=== PATIENT | female | born 1960 | race African-American/Black ===

== ENCOUNTER 2020-07-26 20:17 | Inpatient (IN) | payer OTHER ==
[2020-07-26 20:33] VITALS: BMI 27.0
[2020-07-26 22:04] LABS: BASO % 0.7 % (0-2.0); EOS % 1.1 % (0-4.5); HEMATOCRIT 37.8 % (32.4-45.2); HEMOGLOBIN 13.1 GM/dL (10.7-15.3); LYMPH % 27.1 % (8-40); MCH 31.2 pg (25.7-33.7); MCHC 34.7 g/dl (32.0-36.0); MEAN CELL VOLUME 89.8 fl (80-96); MEAN PLT VOLUME 9.2 fl (7.5-11.1); MONO % 9.2 % (3.8-10.2); NEUT % 61.9 % (42.8-82.8); PLATELET COUNT 209 K/MM3 (134-434); RBC 4.21 M/mm3 (3.60-5.2); RDW 13.5 % (11.6-15.6); WHITE BLOOD COUNT 6.2 K/mm3 (4.0-10.0)
[2020-07-26 22:14] LABS: MAGNESIUM 2.3 mg/dL (1.8-2.4)
[2020-07-26 22:18] LABS: PHOSPHOROUS 3.1 mg/dL (2.5-4.9)
[2020-07-26 23:19] LABS: CHLORIDE 108 mmol/L (98-107); SODIUM 145 mmol/L (136-145)
[2020-07-26 23:21] LABS: ALBUMIN 4.2 g/dl (3.4-5.0); CALCIUM 9.7 mg/dL (8.5-10.1); CO2 29 mmol/L (21-32)
[2020-07-26 23:24] LABS: CREATININE 1.4 mg/dL (0.55-1.3); SGOT/AST 109 U/L (15-37); SGPT/ALT 42 U/L (13-61)
[2020-07-26 23:26] LABS: BILIRUBIN,TOTAL 0.6 mg/dL (0.2-1); TOT PROT 7.8 g/dl (6.4-8.2)
[2020-07-26 23:27] LABS: ALK PHOS 139 U/L (45-117)
[2020-07-26 23:51] LABS: ANION GAP 8 MMOL/L (8-16); GLUCOSE,RANDOM 153 mg/dL (74-106)
[2020-07-26 23:57] LABS: POTASSIUM 2.9 mmol/L (3.5-5.1)
[2020-07-27 00:34] LABS: BLOOD UREA NITROGEN 22.9 mg/dL (7-18)
[2020-07-27] MEDS ORDERED: POTASSIUM CHLORIDE TABS 20 MEQ TABLET.ER (FP) PO ONE ×3 (00:38→12:56)
[2020-07-27] MEDS: AMANTADINE HCL 100 MG TABLET PO SCH ×4 (01:12→21:21)
[2020-07-27] MEDS ORDERED: MAGNESIUM SULF 50% (8.12 MEQ/2 ML-1 GM VIAL) IVPB ONE (01:29)
[2020-07-27 01:30] LABS: PH,URINE 7.5 (5.0-8.0); URINE APPEARANCE CLEAR; URINE BILIRUBIN NEGATIVE (NEGATIVE); URINE COLOR YELLOW; URINE GLUCOSE (UA) NEGATIVE (NEGATIVE); URINE KETONE NEGATIVE (NEGATIVE); URINE LEUK ESTERASE NEGATIVE (NEGATIVE); URINE NITRITE NEGATIVE (NEGATIVE); URINE PROTEIN NEGATIVE (NEGATIVE); URINE UROBILINOGEN 0.2 mg/dL (0.2-1.0)
[2020-07-27] MEDS ORDERED: MAGNESIUM 1GM/D5W - 1 GM/100 ML IVPB IVPB ONE (01:34)
[2020-07-27] MEDS ORDERED: PATIENT'S OWN MEDICATION (NON-FORMULARY) (Losartan/Hydrochlorothiazide [Losartan-Hctz 100- PO SCH (10:00)
[2020-07-27] MEDS ORDERED: LOSARTAN POTASSIUM 50 MG TABLET ONE (11:17)
[2020-07-27] MEDS ORDERED: NIFEdipine E.R. 30 MG TABLET ONE (11:17)
[2020-07-27] MEDS ORDERED: HYDROCHLOROTHIAZIDE 25 MG TABLET (FP) ONE (11:17)
[2020-07-27] MEDS: HYDROCHLOROTHIAZIDE 12.5 MG CAPSULE (FP) PO SCH (11:35)
[2020-07-27] MEDS: NIFEdipine E.R 60 MG TABLET PO SCH (11:35)
[2020-07-27] MEDS: LOSARTAN POTASSIUM 50 MG TABLET PO SCH (11:35)
[2020-07-27] MEDS: SODIUM CHLORIDE 1,000 ML IV SCH (11:35)
[2020-07-27] MEDS: POTASSIUM CHLORIDE TABS 20 MEQ TABLET.ER (FP) PO SCH (13:16)
[2020-07-27] MEDS: INSULIN SLIDING SCALE (NOVOLOG) 1 VIAL SQ SCH ×2 (13:17→18:00)
[2020-07-27] MEDS ORDERED: CARBIDOPA/LEVODOPA 10/100 TABLET (FP) PO SCH (14:00)
[2020-07-27] MEDS: CARBIDOPA/LEVODOPA 25/250 TABLET (FP) PO SCH ×2 (18:00→21:22)
[2020-07-27] MEDS ORDERED: PT OWN MED DRAWER 7, Y5N ONE (21:12)
[2020-07-27] MEDS: ATORVASTATIN CA 20 MG TABLET (FP) PO SCH (21:22)
[2020-07-27] MEDS ORDERED: POTASSIUM CHLORIDE TABS 10 MEQ TABLET.ER (FP) PO SCH (22:00)
[2020-07-28] MEDS: sitaGLIPtin PHOSPHATE 50 MG TABLET PO SCH (06:09)
[2020-07-28] MEDS: CARBIDOPA/LEVODOPA 25/250 TABLET (FP) PO SCH ×3 (06:09→21:39)
[2020-07-28] MEDS: INSULIN SLIDING SCALE (NOVOLOG) 1 VIAL SQ SCH ×3 (06:09→17:16)
[2020-07-28] MEDS: AMANTADINE HCL 100 MG TABLET PO SCH ×3 (06:09→21:40)
[2020-07-28] MEDS: POTASSIUM CHLORIDE TABS 20 MEQ TABLET.ER (FP) PO SCH (09:46)
[2020-07-28] MEDS: HYDROCHLOROTHIAZIDE 12.5 MG CAPSULE (FP) PO SCH (09:46)
[2020-07-28] MEDS: NIFEdipine E.R 60 MG TABLET PO SCH (09:46)
[2020-07-28] MEDS: LOSARTAN POTASSIUM 50 MG TABLET PO SCH (09:47)
[2020-07-28] MEDS ORDERED: INSULIN (NOVOLOG) ASPART 100 UNITS/ML 10ML VIAL ONE (12:00)
[2020-07-28] MEDS: SODIUM CHLORIDE 1,000 ML IV SCH ×2 (12:03→15:04)
[2020-07-28] MEDS ORDERED: PT OWN MED DRAWER 7, Y5N ONE ×2 (15:02→21:10)
[2020-07-28] MEDS: ATORVASTATIN CA 20 MG TABLET (FP) PO SCH (21:39)
[2020-07-29] MEDS: INSULIN SLIDING SCALE (NOVOLOG) 1 VIAL SQ SCH ×3 (06:00→16:36)
[2020-07-29] MEDS: CARBIDOPA/LEVODOPA 25/250 TABLET (FP) PO SCH ×3 (06:00→22:06)
[2020-07-29] MEDS: AMANTADINE HCL 100 MG TABLET PO SCH ×3 (06:00→22:07)
[2020-07-29] MEDS: SODIUM CHLORIDE 1,000 ML IV SCH (06:02)
[2020-07-29] MEDS: sitaGLIPtin PHOSPHATE 50 MG TABLET PO SCH (06:02)
[2020-07-29 09:55] LABS: POTASSIUM 3.8 mmol/L (3.5-5.1)
[2020-07-29] MEDS: LOSARTAN POTASSIUM 50 MG TABLET PO SCH (09:59)
[2020-07-29] MEDS: POTASSIUM CHLORIDE TABS 20 MEQ TABLET.ER (FP) PO SCH (09:59)
[2020-07-29] MEDS: HYDROCHLOROTHIAZIDE 12.5 MG CAPSULE (FP) PO SCH (10:00)
[2020-07-29] MEDS: NIFEdipine E.R 60 MG TABLET PO SCH (10:00)
[2020-07-29 10:35] LABS: CALCIUM 9.1 mg/dL (8.5-10.1)
[2020-07-29 10:37] LABS: CREATININE 0.9 mg/dL (0.55-1.3)
[2020-07-29 10:38] LABS: BILIRUBIN,TOTAL 0.5 mg/dL (0.2-1); TOT PROT 6.2 g/dl (6.4-8.2)
[2020-07-29] MEDS ORDERED: PT OWN MED DRAWER 7, Y5N ONE ×2 (14:19→21:10)
[2020-07-29] MEDS: ATORVASTATIN CA 20 MG TABLET (FP) PO SCH (22:06)
[2020-07-30] MEDS: sitaGLIPtin PHOSPHATE 50 MG TABLET PO SCH (06:48)
[2020-07-30] MEDS: CARBIDOPA/LEVODOPA 25/250 TABLET (FP) PO SCH ×3 (06:48→21:20)
[2020-07-30] MEDS: AMANTADINE HCL 100 MG TABLET PO SCH ×3 (06:48→21:19)
[2020-07-30] MEDS: INSULIN SLIDING SCALE (NOVOLOG) 1 VIAL SQ SCH ×3 (06:49→16:43)
[2020-07-30] MEDS: SODIUM CHLORIDE 1,000 ML IV SCH (09:23)
[2020-07-30] MEDS: POTASSIUM CHLORIDE TABS 20 MEQ TABLET.ER (FP) PO SCH (09:23)
[2020-07-30] MEDS: HYDROCHLOROTHIAZIDE 12.5 MG CAPSULE (FP) PO SCH (09:24)
[2020-07-30] MEDS: LOSARTAN POTASSIUM 50 MG TABLET PO SCH (09:24)
[2020-07-30] MEDS: NIFEdipine E.R 60 MG TABLET PO SCH (09:24)
[2020-07-30] MEDS ORDERED: PT OWN MED DRAWER 7, Y5N ONE ×2 (14:49→20:44)
[2020-07-30] MEDS: ATORVASTATIN CA 20 MG TABLET (FP) PO SCH (21:19)
[2020-07-31 05:13] VITALS: BP 146/88; PULSE 82; TEMP 99
[2020-07-31] MEDS: AMANTADINE HCL 100 MG TABLET PO SCH (06:43)
[2020-07-31] MEDS: CARBIDOPA/LEVODOPA 25/250 TABLET (FP) PO SCH (06:43)
[2020-07-31] MEDS: INSULIN SLIDING SCALE (NOVOLOG) 1 VIAL SQ SCH (06:43)
[2020-07-31] MEDS: sitaGLIPtin PHOSPHATE 50 MG TABLET PO SCH (06:43)
[2020-07-31] MEDS: NIFEdipine E.R 60 MG TABLET PO SCH (09:18)
[2020-07-31] MEDS: POTASSIUM CHLORIDE TABS 20 MEQ TABLET.ER (FP) PO SCH (09:18)
[2020-07-31] MEDS: HYDROCHLOROTHIAZIDE 12.5 MG CAPSULE (FP) PO SCH (09:19)
[2020-07-31] MEDS: LOSARTAN POTASSIUM 50 MG TABLET PO SCH (09:19)
== END 2020-07-31 12:24 | DRG 57 ==
LOC: JER 20:17 → JERBED 23:18 → J6S 07-27 14:33
PROVIDERS: ADMIT Internal Medicine; ATTEND Internal Medicine
DX: G20 Parkinson's disease (principal); E78.00 Pure hypercholesterolemia, unspecified; I10 Essential (primary) hypertension; E11.9 Type 2 diabetes mellitus without complications; E87.6 Hypokalemia; K46.9 Unspecified abdominal hernia without obstruction or gangrene; R01.1 Cardiac murmur, unspecified; M51.36 Other intervertebral disc degeneration, lumbar region; M48.061 Spinal stenosis, lumbar region without neurogenic claudication
CPT/HCPCS: 36415; 70450-TC; 71045-TC-FY; 72131-TC; 80053; 80061; 81003; 82550; 82553; 82962; 83036; 83735; 84100; 84484; 85025; 85730; 87086; 93005; 93010; 97116-GP; 97161-GP; 99285-25; C9803; U0003

== ENCOUNTER 2021-12-08 15:09 | Inpatient (IN) | payer OTHER ==
[2021-12-08 15:26] VITALS: BMI 25.4
[2021-12-08 17:40] LABS: BASO % 0.6 % (0-2.0); EOS % 0.5 % (0-4.5); HEMATOCRIT 36.7 % (32.4-45.2); HEMOGLOBIN 12.4 GM/dL (10.7-15.3); LYMPH % 6.9 % (8-40); MCH 29.6 pg (25.7-33.7); MCHC 33.9 g/dl (32.0-36.0); MEAN CELL VOLUME 87.4 fl (80-96); MEAN PLT VOLUME 8.6 fl (7.5-11.1); MONO % 3.9 % (3.8-10.2); NEUT % 88.1 % (42.8-82.8); PLATELET COUNT 237 10^3/uL (134-434); RBC 4.19 M/mm3 (3.60-5.2); RDW 13.2 % (11.6-15.6); WHITE BLOOD COUNT 7.8 K/mm3 (4.0-10.0)
[2021-12-08 17:46] LABS: INR 1.09 (0.83-1.09); PROTHROMBIN TIME (PATIENT) 12.6 SEC (9.7-13.0)
[2021-12-08 17:49] LABS: ACTIVATED PTT 30.2 SECONDS (25.2-36.5)
[2021-12-08 17:55] LABS: CALCIUM 9.8 mg/dL (8.5-10.1)
[2021-12-08 17:56] LABS: BLOOD UREA NITROGEN 30.5 mg/dL (7-18)
[2021-12-08 17:59] LABS: CREATININE 1.3 mg/dL (0.55-1.3)
[2021-12-08 18:01] LABS: BILIRUBIN,TOTAL 0.7 mg/dL (0.2-1)
[2021-12-08] MEDS ORDERED: PIPERACILLIN/TAZOB 3.375 GM 3.375 GM in DEXTROSE 5%-WATER - 50 ML IVPB ONE (18:49)
[2021-12-08] MEDS ORDERED: VANCOMYCIN 1 GM in D5W (PRE-DOCKED) 1,000 MG/250 ML IVPB ONE (18:50)
[2021-12-08] MEDS ORDERED: VANCOMYCIN 1 GRAM (PRE-DOCKED) 1,000 MG/250 ML BAG IVPB ONE (19:01)
[2021-12-08 19:14] LABS: EPI CELLS 19 /uL (0-25.1); HYALINE CASTS 1 /uL (0-3.1); URINE APPEARANCE CLEAR; URINE BACTERIA 136 /uL (0-1359); URINE BILIRUBIN NEGATIVE (NEGATIVE); URINE COLOR YELLOW; URINE GLUCOSE (UA) TRACE (NEGATIVE); URINE KETONE TRACE (NEGATIVE); URINE LEUK ESTERASE NEGATIVE (NEGATIVE); URINE NITRITE NEGATIVE (NEGATIVE); URINE PROTEIN 1+ (NEGATIVE); URINE RBC 87 /uL (0-23.9); URINE WBC 26 /uL (0-25.8)
[2021-12-08] MEDS ORDERED: PIPERACILLIN/TAZOB 3.375 GM 3.375 GM/50 ML BAG IVPB ONE (20:03)
[2021-12-08] MEDS ORDERED: POLYETHYLENE GLYCOL (HEALTHYLAX) 3350 17 GM PACKET PO PRN (23:54)
[2021-12-09] MEDS ORDERED: PIPERACILLIN/TAZOB 3.375 GM 3.375 GM in DEXTROSE 5%-WATER - 50 ML IVPB SCH (02:00)
[2021-12-09] MEDS: PIPERACILLIN/TAZOB 3.375 GM 3.375 GM in DEXTROSE 5%-WATER - 50 ML IVPB SCH ×3 (02:41→17:32)
[2021-12-09] MEDS ORDERED: PIPERACILLIN/TAZOB 3.375 GM 3.375 GM/50 ML BAG IVPB ONE (02:42)
[2021-12-09] MEDS: CARBIDOPA/LEVODOPA 25/250 TABLET (FP) PO SCH ×4 (03:20→21:30)
[2021-12-09] MEDS: AMANTADINE HCL 100 MG TABLET PO SCH ×4 (03:29→21:30)
[2021-12-09] MEDS: INSULIN SLIDING SCALE (NOVOLOG) 1 VIAL SQ SCH ×4 (06:49→21:30)
[2021-12-09] MEDS: sitaGLIPtin PHOSPHATE 50 MG TABLET PO SCH (06:57)
[2021-12-09 07:08] LABS: BASO % 0.8 % (0-2.0); EOS % 1.3 % (0-4.5); HEMATOCRIT 35.7 % (32.4-45.2); HEMOGLOBIN 12.3 GM/dL (10.7-15.3); MCH 29.7 pg (25.7-33.7); MCHC 34.4 g/dl (32.0-36.0); MEAN CELL VOLUME 86.2 fl (80-96); MEAN PLT VOLUME 8.7 fl (7.5-11.1); MONO % 8.9 % (3.8-10.2); PLATELET COUNT 256 10^3/uL (134-434); RBC 4.14 M/mm3 (3.60-5.2); RDW 13.3 % (11.6-15.6); WHITE BLOOD COUNT 7.2 K/mm3 (4.0-10.0)
[2021-12-09 07:35] LABS: BLOOD UREA NITROGEN 32.6 mg/dL (7-18)
[2021-12-09 07:36] LABS: CALCIUM 9.6 mg/dL (8.5-10.1); MAGNESIUM 2.6 mg/dL (1.8-2.4)
[2021-12-09 07:39] LABS: CREATININE 1.3 mg/dL (0.55-1.3)
[2021-12-09] MEDS ORDERED: PIPERACILLIN/TAZOBACTAM 3.375 GM VIAL IVPB ONE ×2 (09:53→17:27)
[2021-12-09] MEDS ORDERED: DEXTROSE 5%-WATER - 50 ML IVPB ONE ×2 (09:54→17:27)
[2021-12-09] MEDS: LOSARTAN POTASSIUM 50 MG TABLET PO SCH (09:56)
[2021-12-09] MEDS: amLODIPine BESYLATE 2.5 MG TABLET (FP) PO SCH (09:56)
[2021-12-09] MEDS: ENOXAPARIN NA (PORCINE) 40 MG/0.4 ML DISP.SYRIN SQ SCH ×2 (09:57→10:04)
[2021-12-09] MEDS ORDERED: PATIENT'S OWN MEDICATION (NON-FORMULARY) (Losartan/Hydrochlorothiazide [Losartan-Hctz 100- PO SCH (10:00)
[2021-12-09] MEDS ORDERED: HYDROCHLOROTHIAZIDE 12.5 MG CAPSULE (FP) PO SCH (10:00)
[2021-12-09] MEDS ORDERED: VANCOMYCIN 1 GM in D5W (PRE-DOCKED) 1,000 MG/250 ML IVPB SCH (18:00)
[2021-12-09] MEDS ORDERED: VANCOMYCIN 1 GRAM (PRE-DOCKED) 1,000 MG/250 ML BAG IVPB SCH (18:00)
[2021-12-09] MEDS: ATORVASTATIN CA 20 MG TABLET (FP) PO SCH (21:30)
[2021-12-09] MEDS: ACETAMINOPHEN 325 MG TABLET (FP) PO PRN (21:31)
[2021-12-10] MEDS ORDERED: PIPERACILLIN/TAZOBACTAM 3.375 GM VIAL IVPB ONE ×3 (03:31→16:44)
[2021-12-10] MEDS: PIPERACILLIN/TAZOB 3.375 GM 3.375 GM in DEXTROSE 5%-WATER - 50 ML IVPB SCH ×3 (03:35→17:38)
[2021-12-10] MEDS: AMANTADINE HCL 100 MG TABLET PO SCH ×3 (05:49→21:36)
[2021-12-10] MEDS: CARBIDOPA/LEVODOPA 25/250 TABLET (FP) PO SCH ×3 (05:49→21:35)
[2021-12-10] MEDS: ACETAMINOPHEN 325 MG TABLET (FP) PO PRN (05:50)
[2021-12-10] MEDS: sitaGLIPtin PHOSPHATE 50 MG TABLET PO SCH (05:59)
[2021-12-10] MEDS: INSULIN SLIDING SCALE (NOVOLOG) 1 VIAL SQ SCH ×4 (05:59→21:36)
[2021-12-10 08:08] LABS: CALCIUM 9.1 mg/dL (8.5-10.1)
[2021-12-10 08:09] LABS: BLOOD UREA NITROGEN 29.2 mg/dL (7-18)
[2021-12-10 08:12] LABS: CREATININE 1.1 mg/dL (0.55-1.3)
[2021-12-10 08:14] LABS: BASO % 0.9 % (0-2.0); EOS % 2.5 % (0-4.5); HEMATOCRIT 32.4 % (32.4-45.2); MCH 29.6 pg (25.7-33.7); MCHC 33.9 g/dl (32.0-36.0); MEAN CELL VOLUME 87.3 fl (80-96); MEAN PLT VOLUME 8.2 fl (7.5-11.1); MONO % 8.6 % (3.8-10.2); PLATELET COUNT 217 10^3/uL (134-434); RBC 3.71 M/mm3 (3.60-5.2); RDW 13.6 % (11.6-15.6); WHITE BLOOD COUNT 4.2 K/mm3 (4.0-10.0)
[2021-12-10] MEDS ORDERED: POTASSIUM CHLORIDE ORAL LIQUID 20 MEQ/15 ML PO ONE (08:45)
[2021-12-10] MEDS ORDERED: DEXTROSE 5%-WATER - 50 ML IVPB ONE ×2 (09:28→16:44)
[2021-12-10] MEDS ORDERED: REGADENOSON 0.4 MG/5 ML PRE-FILLED SYRINGE IVPUSH ONE ×2 (09:30→11:09)
[2021-12-10] MEDS: LOSARTAN POTASSIUM 50 MG TABLET PO SCH (12:21)
[2021-12-10] MEDS: amLODIPine BESYLATE 2.5 MG TABLET (FP) PO SCH (12:21)
[2021-12-10] MEDS: ENOXAPARIN NA (PORCINE) 40 MG/0.4 ML DISP.SYRIN SQ SCH (12:22)
[2021-12-10] MEDS: ATORVASTATIN CA 20 MG TABLET (FP) PO SCH (21:35)
[2021-12-11] MEDS ORDERED: PIPERACILLIN/TAZOBACTAM 3.375 GM VIAL IVPB ONE ×3 (00:34→17:04)
[2021-12-11] MEDS: ACETAMINOPHEN 325 MG TABLET (FP) PO PRN ×2 (00:42→06:36)
[2021-12-11] MEDS: PIPERACILLIN/TAZOB 3.375 GM 3.375 GM in DEXTROSE 5%-WATER - 50 ML IVPB SCH ×3 (01:05→17:12)
[2021-12-11] MEDS: INSULIN SLIDING SCALE (NOVOLOG) 1 VIAL SQ SCH ×4 (06:35→21:34)
[2021-12-11] MEDS: CARBIDOPA/LEVODOPA 25/250 TABLET (FP) PO SCH ×3 (06:37→21:37)
[2021-12-11] MEDS: sitaGLIPtin PHOSPHATE 50 MG TABLET PO SCH (06:37)
[2021-12-11] MEDS: AMANTADINE HCL 100 MG TABLET PO SCH ×3 (06:37→21:37)
[2021-12-11 07:43] LABS: HEMATOCRIT 33.6 % (32.4-45.2); HEMOGLOBIN 11.4 GM/dL (10.7-15.3); LYMPH % 24.4 % (8-40); MCH 29.8 pg (25.7-33.7); MCHC 33.9 g/dl (32.0-36.0); MEAN CELL VOLUME 87.9 fl (80-96); MEAN PLT VOLUME 8.1 fl (7.5-11.1); MONO % 7.9 % (3.8-10.2); NEUT % 63.7 % (42.8-82.8); PLATELET COUNT 216 10^3/uL (134-434); RBC 3.82 M/mm3 (3.60-5.2); RDW 13.5 % (11.6-15.6); WHITE BLOOD COUNT 3.9 K/mm3 (4.0-10.0)
[2021-12-11] MEDS ORDERED: DEXTROSE 5%-WATER - 50 ML IVPB ONE ×2 (09:26→17:04)
[2021-12-11] MEDS: ENOXAPARIN NA (PORCINE) 40 MG/0.4 ML DISP.SYRIN SQ SCH (09:39)
[2021-12-11] MEDS: LOSARTAN POTASSIUM 50 MG TABLET PO SCH (09:39)
[2021-12-11] MEDS: amLODIPine BESYLATE 2.5 MG TABLET (FP) PO SCH (09:39)
[2021-12-11] MEDS ORDERED: POLYETHYLENE GLYCOL (HEALTHYLAX) 3350 17 GM PACKET PO PRN (11:59)
[2021-12-11] MEDS: ATORVASTATIN CA 20 MG TABLET (FP) PO SCH (21:37)
[2021-12-12] MEDS ORDERED: PIPERACILLIN/TAZOBACTAM 3.375 GM VIAL IVPB ONE ×3 (01:55→17:31)
[2021-12-12] MEDS ORDERED: DEXTROSE 5%-WATER - 50 ML IVPB ONE ×3 (01:55→17:31)
[2021-12-12] MEDS: PIPERACILLIN/TAZOB 3.375 GM 3.375 GM in DEXTROSE 5%-WATER - 50 ML IVPB SCH ×3 (01:59→17:33)
[2021-12-12] MEDS: ACETAMINOPHEN 325 MG TABLET (FP) PO PRN (02:13)
[2021-12-12] MEDS: CARBIDOPA/LEVODOPA 25/250 TABLET (FP) PO SCH ×3 (06:16→21:43)
[2021-12-12] MEDS: AMANTADINE HCL 100 MG TABLET PO SCH ×3 (06:16→21:44)
[2021-12-12] MEDS: sitaGLIPtin PHOSPHATE 50 MG TABLET PO SCH (06:16)
[2021-12-12] MEDS: INSULIN SLIDING SCALE (NOVOLOG) 1 VIAL SQ SCH ×4 (06:57→21:50)
[2021-12-12] MEDS: LOSARTAN POTASSIUM 50 MG TABLET PO SCH (10:31)
[2021-12-12] MEDS: ENOXAPARIN NA (PORCINE) 40 MG/0.4 ML DISP.SYRIN SQ SCH (10:31)
[2021-12-12] MEDS: amLODIPine BESYLATE 2.5 MG TABLET (FP) PO SCH (10:31)
[2021-12-12] MEDS: ATORVASTATIN CA 20 MG TABLET (FP) PO SCH (21:43)
[2021-12-13] MEDS ORDERED: PIPERACILLIN/TAZOBACTAM 3.375 GM VIAL IVPB ONE ×3 (00:56→17:01)
[2021-12-13] MEDS: PIPERACILLIN/TAZOB 3.375 GM 3.375 GM in DEXTROSE 5%-WATER - 50 ML IVPB SCH ×3 (01:09→17:03)
[2021-12-13] MEDS: AMANTADINE HCL 100 MG TABLET PO SCH ×3 (06:20→21:41)
[2021-12-13] MEDS: sitaGLIPtin PHOSPHATE 50 MG TABLET PO SCH (06:20)
[2021-12-13] MEDS: CARBIDOPA/LEVODOPA 25/250 TABLET (FP) PO SCH ×3 (06:20→21:41)
[2021-12-13] MEDS: INSULIN SLIDING SCALE (NOVOLOG) 1 VIAL SQ SCH ×4 (06:27→21:49)
[2021-12-13] MEDS ORDERED: DEXTROSE 5%-WATER - 50 ML IVPB ONE (09:32)
[2021-12-13] MEDS: LOSARTAN POTASSIUM 50 MG TABLET PO SCH (09:40)
[2021-12-13] MEDS: amLODIPine BESYLATE 2.5 MG TABLET (FP) PO SCH (09:40)
[2021-12-13] MEDS: ACETAMINOPHEN 325 MG TABLET (FP) PO PRN (09:40)
[2021-12-13] MEDS: ENOXAPARIN NA (PORCINE) 40 MG/0.4 ML DISP.SYRIN SQ SCH (09:48)
[2021-12-13] MEDS: ATORVASTATIN CA 20 MG TABLET (FP) PO SCH (21:41)
[2021-12-14] MEDS ORDERED: PIPERACILLIN/TAZOBACTAM 3.375 GM VIAL IVPB ONE ×2 (01:08→09:24)
[2021-12-14] MEDS ORDERED: DEXTROSE 5%-WATER - 50 ML IVPB ONE ×2 (01:08→09:24)
[2021-12-14] MEDS: PIPERACILLIN/TAZOB 3.375 GM 3.375 GM in DEXTROSE 5%-WATER - 50 ML IVPB SCH (01:17)
[2021-12-14] MEDS: AMANTADINE HCL 100 MG TABLET PO SCH ×2 (06:05→13:32)
[2021-12-14] MEDS: CARBIDOPA/LEVODOPA 25/250 TABLET (FP) PO SCH ×2 (06:05→13:33)
[2021-12-14] MEDS: sitaGLIPtin PHOSPHATE 50 MG TABLET PO SCH (06:06)
[2021-12-14] MEDS: INSULIN SLIDING SCALE (NOVOLOG) 1 VIAL SQ SCH ×3 (06:13→17:19)
[2021-12-14] MEDS: amLODIPine BESYLATE 2.5 MG TABLET (FP) PO SCH (09:28)
[2021-12-14] MEDS: LOSARTAN POTASSIUM 50 MG TABLET PO SCH (09:28)
[2021-12-14] MEDS: ACETAMINOPHEN 325 MG TABLET (FP) PO PRN (09:28)
[2021-12-14] MEDS: ENOXAPARIN NA (PORCINE) 40 MG/0.4 ML DISP.SYRIN SQ SCH (09:32)
[2021-12-14] MEDS ORDERED: POTASSIUM CHLORIDE TABS 20 MEQ TABLET.ER (FP) PO ONE (11:52)
[2021-12-14] MEDS ORDERED: amLODIPine BESYLATE 2.5 MG TABLET (FP) PO ONE (14:22)
[2021-12-14 18:31] VITALS: BP 136/75; PULSE 78; TEMP 98.1
[2021-12-15] MEDS ORDERED: amLODIPine BESYLATE 2.5 MG TABLET (FP) PO SCH (10:00)
== END 2021-12-14 18:35 | disposition home health service (06) | DRG 603 ==
LOC: JER 15:09 → JERBED 18:58 → J4W 12-09 04:29 → J6S 12-11 12:11
PROVIDERS: ADMIT Hospitalist; ATTEND Internal Medicine
DX: L03.115 Cellulitis of right lower limb (principal); L97.518 Non-pressure chronic ulcer of other part of right foot with other specified severity; I10 Essential (primary) hypertension; E78.5 Hyperlipidemia, unspecified; G20 Parkinson's disease; E11.621 Type 2 diabetes mellitus with foot ulcer; N93.9 Abnormal uterine and vaginal bleeding, unspecified; R55 Syncope and collapse
CPT/HCPCS: 36415; 70450-TC; 71045-TC-FY; 71046-TC-FY; 73610-TC-RT-FY; 73630-TC-RT-FY; 76856-TC; 78452-TC; 80048; 80053; 80061; 81003; 82550; 82962; 83036; 83735; 84443; 84484; 85025; 85610; 85730; 86850; 86900; 86901; 87086; 93005; 93010; 93017; 93306-TC; 93880-TC; 93970-TC; 97116-GP; 99285-25; A9502; C9803-CS; J2785; U0003; U0005

== ENCOUNTER 2022-03-15 00:52 | Observation (INO) | payer OTHER ==
[2022-03-15 01:00] VITALS: BMI 26.7
[2022-03-15 02:48] LABS: BASO % 1.2 % (0-2.0); EOS % 1.5 % (0-4.5); HEMATOCRIT 35.9 % (32.4-45.2); HEMOGLOBIN 12.2 GM/dL (10.7-15.3); LYMPH % 23.7 % (8-40); MCH 29.7 pg (25.7-33.7); MEAN CELL VOLUME 87.5 fl (80-96); MEAN PLT VOLUME 8.4 fl (7.5-11.1); MONO % 8.4 % (3.8-10.2); NEUT % 65.2 % (42.8-82.8); PLATELET COUNT 229 10^3/uL (134-434); RBC 4.11 M/mm3 (3.60-5.2); RDW 13.4 % (11.6-15.6); WHITE BLOOD COUNT 4.3 K/mm3 (4.0-10.0)
[2022-03-15 03:11] LABS: ALBUMIN 3.9 g/dl (3.4-5.0); BLOOD UREA NITROGEN 30.9 mg/dL (7-18); CALCIUM 9.8 mg/dL (8.5-10.1)
[2022-03-15 03:14] LABS: CREATININE 1.1 mg/dL (0.55-1.3)
[2022-03-15 03:16] LABS: BILIRUBIN,TOTAL 0.6 mg/dL (0.2-1); TOT PROT 7.6 g/dl (6.4-8.2)
[2022-03-15] MEDS ORDERED: FUROSEMIDE 40 MG/4 ML INJECTABLE VIAL IVPUSH ONE ×2 (03:58→10:51)
[2022-03-15] MEDS ORDERED: FUROSEMIDE 40 MG/4 ML INJECTABLE VIAL ONE (04:18)
[2022-03-15] MEDS ORDERED: ACETAMINOPHEN 325 MG TABLET (FP) PO PRN (05:20)
[2022-03-15] MEDS ORDERED: DOCUSATE SODIUM 100 MG CAPSULE (FP) PO PRN (05:20)
[2022-03-15] MEDS ORDERED: CARBIDOPA/LEVODOPA 25/250 TABLET (FP) ONE (06:52)
[2022-03-15] MEDS: CARBIDOPA/LEVODOPA 25/250 TABLET (FP) PO SCH ×3 (06:57→21:29)
[2022-03-15] MEDS: INSULIN SLIDING SCALE (NOVOLOG) 1 VIAL SQ SCH ×4 (08:57→21:29)
[2022-03-15] MEDS: ENOXAPARIN NA (PORCINE) 40 MG/0.4 ML DISP.SYRIN SQ SCH (09:29)
[2022-03-15] MEDS: AMANTADINE HCL 100 MG TABLET PO SCH ×3 (09:30→21:31)
[2022-03-15] MEDS ORDERED: LOSARTAN 50MG/HCTZ 12.5MG 1 TAB PO SCH (10:00)
[2022-03-15 12:30] LABS: CALCIUM 9.6 mg/dL (8.5-10.1)
[2022-03-15 12:31] LABS: BLOOD UREA NITROGEN 23.8 mg/dL (7-18)
[2022-03-15] MEDS: ATORVASTATIN CA 20 MG TABLET (FP) PO SCH (21:29)
[2022-03-16] MEDS: CARBIDOPA/LEVODOPA 25/250 TABLET (FP) PO SCH ×3 (05:57→21:59)
[2022-03-16] MEDS: AMANTADINE HCL 100 MG TABLET PO SCH ×3 (06:18→21:59)
[2022-03-16] MEDS: INSULIN SLIDING SCALE (NOVOLOG) 1 VIAL SQ SCH ×4 (06:19→22:31)
[2022-03-16 09:21] LABS: BASO % 0.5 % (0-2.0); EOS % 1.5 % (0-4.5); HEMATOCRIT 35.6 % (32.4-45.2); HEMOGLOBIN 11.7 GM/dL (10.7-15.3); LYMPH % 20.6 % (8-40); MCH 28.8 pg (25.7-33.7); MEAN CELL VOLUME 87.5 fl (80-96); MEAN PLT VOLUME 8.9 fl (7.5-11.1); MONO % 9.1 % (3.8-10.2); NEUT % 68.3 % (42.8-82.8); PLATELET COUNT 205 10^3/uL (134-434); RBC 4.07 M/mm3 (3.60-5.2); RDW 13.1 % (11.6-15.6); WHITE BLOOD COUNT 4.2 K/mm3 (4.0-10.0)
[2022-03-16 09:42] LABS: ALBUMIN 3.2 g/dl (3.4-5.0); BLOOD UREA NITROGEN 29.2 mg/dL (7-18)
[2022-03-16 09:44] LABS: MAGNESIUM 2.3 mg/dL (1.8-2.4)
[2022-03-16 09:45] LABS: CALCIUM 9.3 mg/dL (8.5-10.1); CREATININE 1.1 mg/dL (0.55-1.3)
[2022-03-16 09:47] LABS: BILIRUBIN,TOTAL 0.5 mg/dL (0.2-1); TOT PROT 6.5 g/dl (6.4-8.2)
[2022-03-16] MEDS: FUROSEMIDE 40 MG TABLET (FP) PO SCH (10:47)
[2022-03-16] MEDS: ENOXAPARIN NA (PORCINE) 40 MG/0.4 ML DISP.SYRIN SQ SCH (10:47)
[2022-03-16] MEDS: LOSARTAN POTASSIUM 50 MG TABLET PO SCH (10:47)
[2022-03-16] MEDS: ATORVASTATIN CA 20 MG TABLET (FP) PO SCH (21:59)
[2022-03-16] MEDS ORDERED: INSULIN (NOVOLOG) ASPART 100 UNITS/ML 10ML VIAL ONE (22:25)
[2022-03-17] MEDS: AMANTADINE HCL 100 MG TABLET PO SCH ×3 (06:01→22:16)
[2022-03-17] MEDS: CARBIDOPA/LEVODOPA 25/250 TABLET (FP) PO SCH ×3 (06:01→22:16)
[2022-03-17] MEDS: INSULIN SLIDING SCALE (NOVOLOG) 1 VIAL SQ SCH ×4 (06:06→22:21)
[2022-03-17 08:23] LABS: BASO % 1.1 % (0-2.0); EOS % 2.2 % (0-4.5); HEMATOCRIT 34.3 % (32.4-45.2); HEMOGLOBIN 11.6 GM/dL (10.7-15.3); MCH 29.6 pg (25.7-33.7); MCHC 33.9 g/dl (32.0-36.0); MEAN CELL VOLUME 87.4 fl (80-96); MEAN PLT VOLUME 8.3 fl (7.5-11.1); MONO % 9.2 % (3.8-10.2); NEUT % 61.5 % (42.8-82.8); PLATELET COUNT 192 10^3/uL (134-434); RBC 3.92 M/mm3 (3.60-5.2); RDW 13.1 % (11.6-15.6); WHITE BLOOD COUNT 3.9 K/mm3 (4.0-10.0)
[2022-03-17 08:52] LABS: CALCIUM 9.3 mg/dL (8.5-10.1)
[2022-03-17 08:53] LABS: ALBUMIN 3.1 g/dl (3.4-5.0); BLOOD UREA NITROGEN 32.1 mg/dL (7-18); MAGNESIUM 2.6 mg/dL (1.8-2.4)
[2022-03-17 08:56] LABS: CREATININE 0.9 mg/dL (0.55-1.3)
[2022-03-17 08:57] LABS: BILIRUBIN,TOTAL 0.5 mg/dL (0.2-1); TOT PROT 6.3 g/dl (6.4-8.2)
[2022-03-17] MEDS: LOSARTAN POTASSIUM 50 MG TABLET PO SCH (09:10)
[2022-03-17] MEDS: FUROSEMIDE 40 MG TABLET (FP) PO SCH (09:10)
[2022-03-17] MEDS: ENOXAPARIN NA (PORCINE) 40 MG/0.4 ML DISP.SYRIN SQ SCH (09:10)
[2022-03-17] MEDS: POTASSIUM CHLORIDE TABS 20 MEQ TABLET.ER (FP) PO SCH ×2 (09:14→22:16)
[2022-03-17] MEDS: ATORVASTATIN CA 20 MG TABLET (FP) PO SCH (22:16)
[2022-03-18] MEDS: CARBIDOPA/LEVODOPA 25/250 TABLET (FP) PO SCH ×2 (06:20→12:59)
[2022-03-18] MEDS: AMANTADINE HCL 100 MG TABLET PO SCH ×2 (06:21→12:59)
[2022-03-18] MEDS: INSULIN SLIDING SCALE (NOVOLOG) 1 VIAL SQ SCH ×2 (07:20→11:32)
[2022-03-18 08:14] LABS: BASO % 0.9 % (0-2.0); EOS % 2.4 % (0-4.5); HEMATOCRIT 35.1 % (32.4-45.2); HEMOGLOBIN 11.7 GM/dL (10.7-15.3); MCH 29.3 pg (25.7-33.7); MCHC 33.3 g/dl (32.0-36.0); MEAN PLT VOLUME 8.2 fl (7.5-11.1); MONO % 8.6 % (3.8-10.2); NEUT % 67.1 % (42.8-82.8); PLATELET COUNT 201 10^3/uL (134-434); RBC 3.99 M/mm3 (3.60-5.2); RDW 13.4 % (11.6-15.6); WHITE BLOOD COUNT 3.9 K/mm3 (4.0-10.0)
[2022-03-18 08:42] LABS: ALBUMIN 3.1 g/dl (3.4-5.0); CALCIUM 9.3 mg/dL (8.5-10.1); MAGNESIUM 2.3 mg/dL (1.8-2.4)
[2022-03-18 08:44] VITALS: RESP 18
[2022-03-18 08:44] LABS: BLOOD UREA NITROGEN 29.2 mg/dL (7-18)
[2022-03-18 08:48] LABS: BILIRUBIN,TOTAL 0.4 mg/dL (0.2-1); TOT PROT 6.4 g/dl (6.4-8.2)
[2022-03-18] MEDS: ENOXAPARIN NA (PORCINE) 40 MG/0.4 ML DISP.SYRIN SQ SCH (09:17)
[2022-03-18] MEDS: LOSARTAN POTASSIUM 50 MG TABLET PO SCH (09:17)
[2022-03-18] MEDS: FUROSEMIDE 40 MG TABLET (FP) PO SCH (09:17)
[2022-03-18] MEDS ORDERED: INSULIN (NOVOLOG) ASPART 100 UNITS/ML 10ML VIAL ONE (11:24)
[2022-03-18 12:32] VITALS: BP 152/90; PULSE 78; TEMP 98.8
[2022-03-18] MEDS ORDERED: amLODIPine BESYLATE 5 MG TABLET (FP) PO ONE (13:00)
== END 2022-03-18 13:44 ==
LOC: JER 00:52 → JERBED 04:07 → J7W 07:52
PROVIDERS: ADMIT Family Medicine; ATTEND Nurse Practitioner Acute Care
PROC: 3E033GC Introduction of Other Therapeutic Substance into Peripheral Vein, Percutaneous Approach (ICD-10-PCS; principal; 2022-03-15)
PROC: 3E013VG Introduction of Insulin into Subcutaneous Tissue, Percutaneous Approach (ICD-10-PCS; 2022-03-15)
DX: R22.40 Localized swelling, mass and lump, unspecified lower limb (principal); Z88.8 Allergy status to other drugs, medicaments and biological substances; I10 Essential (primary) hypertension; E78.5 Hyperlipidemia, unspecified; E11.9 Type 2 diabetes mellitus without complications; G20 Parkinson's disease; L03.90 Cellulitis, unspecified; R01.1 Cardiac murmur, unspecified; E78.00 Pure hypercholesterolemia, unspecified; D21.9 Benign neoplasm of connective and other soft tissue, unspecified; M79.604 Pain in right leg; R26.2 Difficulty in walking, not elsewhere classified; M79.605 Pain in left leg
CPT/HCPCS: 0241U-QW; 36415; 71045-TC-FY; 80048; 80053; 82962; 83735; 83880; 84439; 84443; 84479; 84484; 85025; 93005; 93010; 93970-TC; 96372; 96374; 96376; 97116-GP; 97161-GP; 99285-25; G0378

== ENCOUNTER 2023-01-14 11:41 | Inpatient (IN) | payer OTHER ==
[2023-01-14] MEDS ORDERED: SODIUM CHLORIDE 1,783 ML IV ONE (12:55)
[2023-01-14] MEDS ORDERED: ACETAMINOPHEN 1000 MG/100 ML BAG IVPB ONE (12:56)
[2023-01-14] MEDS ORDERED: CEFAZOLIN 1 GM in DEXTROSE 5%-WATER - 50 ML IVPB ONE (12:59)
[2023-01-14] MEDS ORDERED: ACETAMINOPHEN INJECTION 100 ML IVPB ONE (13:03)
[2023-01-14] MEDS ORDERED: VANCOMYCIN 1,000 MG in DEXTROSE 5%-WATER - 250 ML IVPB ONE (13:19)
[2023-01-14] MEDS ORDERED: VANCOMYCIN/WATER FOR INJ (PEG) 1,000 MG/200 ML BAG IVPB ONE (13:25)
[2023-01-14] MEDS ORDERED: ceFAZolin SODIUM 1 GM VIAL ONE (13:27)
[2023-01-14 13:38] LABS: BASO % 0.7 % (0-2.0); EOS % 0.4 % (0-4.5); HEMATOCRIT 29.6 % (32.4-45.2); LYMPH % 16.3 % (8-40); MCHC 33.8 g/dl (32.0-36.0); MEAN CELL VOLUME 88.8 fl (80-96); MEAN PLT VOLUME 7.7 fl (7.5-11.1); MONO % 11.6 % (3.8-10.2); PLATELET COUNT 267 10^3/uL (134-434); RBC 3.34 M/mm3 (3.60-5.2); RDW 14.1 % (11.6-15.6); WHITE BLOOD COUNT 5.3 K/mm3 (4.0-10.0)
[2023-01-14 13:47] LABS: INR 1.06 (0.83-1.09); PROTHROMBIN TIME (PATIENT) 12.3 SEC (9.7-13.0)
[2023-01-14 13:50] LABS: ACTIVATED PTT 31.9 SECONDS (25.2-36.5)
[2023-01-14 13:55] LABS: POTASSIUM 3.7 mmol/L (3.5-5.1)
[2023-01-14 13:56] LABS: ALBUMIN 3.3 g/dl (3.4-5.0); BLOOD UREA NITROGEN 29.4 mg/dL (7-18); CALCIUM 9.7 mg/dL (8.5-10.1)
[2023-01-14 14:00] LABS: CREATININE 1.2 mg/dL (0.55-1.3)
[2023-01-14 14:02] LABS: BILIRUBIN,TOTAL 0.4 mg/dL (0.2-1); TOT PROT 7.3 g/dl (6.4-8.2)
[2023-01-14 15:29] LABS: VENOUS BASE EXCESS -0.7 mmol/L (-2-2); VENOUS PCO2 44.3 mmHg (38-52); VENOUS PH 7.366 (7.310-7.410)
[2023-01-14] MEDS: INSULIN SLIDING SCALE (NOVOLOG) 1 VIAL SQ SCH (17:39)
[2023-01-14] MEDS ORDERED: CLINDAMYCIN 600MG PREMIX IVPB 600 MG/50 ML BAG IVPB SCH ×3 (18:00→20:15)
[2023-01-14 18:57] VITALS: BMI 25.0
[2023-01-14] MEDS: HEPARIN NA (PORCINE) 5,000 UNITS/ML 1ML VIAL SQ SCH (23:14)
[2023-01-14] MEDS: CARBIDOPA/LEVODOPA 25/250 TABLET (FP) PO SCH (23:14)
[2023-01-14] MEDS: ATORVASTATIN CA 20 MG TABLET (FP) PO SCH (23:15)
[2023-01-14] MEDS: AMANTADINE HCL 100 MG TABLET PO SCH (23:28)
[2023-01-15] MEDS ORDERED: amLODIPine BESYLATE 5 MG TABLET (FP) PO ONE (00:35)
[2023-01-15] MEDS: ACETAMINOPHEN 325 MG TABLET (FP) PO PRN (02:10)
[2023-01-15] MEDS: AMANTADINE HCL 100 MG TABLET PO SCH ×3 (05:03→21:50)
[2023-01-15] MEDS: CARBIDOPA/LEVODOPA 25/250 TABLET (FP) PO SCH ×3 (05:03→21:51)
[2023-01-15] MEDS: INSULIN SLIDING SCALE (NOVOLOG) 1 VIAL SQ SCH ×3 (06:26→18:18)
[2023-01-15] MEDS: LOSARTAN POTASSIUM 50 MG TABLET PO SCH (10:41)
[2023-01-15] MEDS: HEPARIN NA (PORCINE) 5,000 UNITS/ML 1ML VIAL SQ SCH ×2 (10:44→21:18)
[2023-01-15 11:13] LABS: POTASSIUM 3.2 mmol/L (3.5-5.1)
[2023-01-15 11:17] LABS: BLOOD UREA NITROGEN 16.2 mg/dL (7-18); CALCIUM 9.6 mg/dL (8.5-10.1)
[2023-01-15 11:22] LABS: CREATININE 0.9 mg/dL (0.55-1.3)
[2023-01-15] MEDS: AMPICILLIN NA/SULBACTAM NA 1.5 GM in SODIUM CHLORIDE 100 ML IVPB SCH ×2 (13:17→18:25)
[2023-01-15 13:40] LABS: HEMOGLOBIN 11.2 GM/dL (10.7-15.3); MCH 29.6 pg (25.7-33.7); MCHC 33.9 g/dl (32.0-36.0); MEAN CELL VOLUME 87.1 fl (80-96); MEAN PLT VOLUME 7.6 fl (7.5-11.1); PLATELET COUNT 347 10^3/uL (134-434); RBC 3.78 M/mm3 (3.60-5.2); WHITE BLOOD COUNT 6.1 K/mm3 (4.0-10.0)
[2023-01-15] MEDS ORDERED: POTASSIUM CHLORIDE ORAL LIQUID 20 MEQ/15 ML PO ONE (18:13)
[2023-01-15] MEDS: ATORVASTATIN CA 20 MG TABLET (FP) PO SCH (21:51)
[2023-01-16] MEDS: AMPICILLIN NA/SULBACTAM NA 1.5 GM in SODIUM CHLORIDE 100 ML IVPB SCH ×3 (02:54→17:44)
[2023-01-16] MEDS: AMANTADINE HCL 100 MG TABLET PO SCH ×3 (08:07→21:42)
[2023-01-16] MEDS: CARBIDOPA/LEVODOPA 25/250 TABLET (FP) PO SCH ×3 (08:07→21:42)
[2023-01-16] MEDS: INSULIN SLIDING SCALE (NOVOLOG) 1 VIAL SQ SCH ×3 (08:17→17:40)
[2023-01-16] MEDS: LOSARTAN POTASSIUM 50 MG TABLET PO SCH (10:08)
[2023-01-16] MEDS: HEPARIN NA (PORCINE) 5,000 UNITS/ML 1ML VIAL SQ SCH ×2 (10:09→21:43)
[2023-01-16] MEDS: AMINO ACIDS/PROTEIN HYDROLYS 30 ML LIQUID.PKT PO SCH (17:44)
[2023-01-16] MEDS: ATORVASTATIN CA 20 MG TABLET (FP) PO SCH (21:42)
[2023-01-17] MEDS: AMPICILLIN NA/SULBACTAM NA 1.5 GM in SODIUM CHLORIDE 100 ML IVPB SCH ×3 (01:41→17:48)
[2023-01-17] MEDS: AMANTADINE HCL 100 MG TABLET PO SCH ×3 (06:08→22:30)
[2023-01-17] MEDS: CARBIDOPA/LEVODOPA 25/250 TABLET (FP) PO SCH ×3 (06:08→22:29)
[2023-01-17] MEDS: INSULIN SLIDING SCALE (NOVOLOG) 1 VIAL SQ SCH ×3 (06:11→17:38)
[2023-01-17] MEDS: ASCORBIC ACID 500 MG TABLET (FP) PO SCH (10:34)
[2023-01-17] MEDS: AMINO ACIDS/PROTEIN HYDROLYS 30 ML LIQUID.PKT PO SCH ×2 (10:34→17:48)
[2023-01-17] MEDS: MULTIVITAMINS (DAILY MVI) TABLET (FP) PO SCH (10:34)
[2023-01-17] MEDS: LOSARTAN POTASSIUM 50 MG TABLET PO SCH (10:35)
[2023-01-17] MEDS: HEPARIN NA (PORCINE) 5,000 UNITS/ML 1ML VIAL SQ SCH ×2 (10:40→22:29)
[2023-01-17] MEDS: ATORVASTATIN CA 20 MG TABLET (FP) PO SCH (22:29)
[2023-01-18] MEDS: AMPICILLIN NA/SULBACTAM NA 1.5 GM in SODIUM CHLORIDE 100 ML IVPB SCH ×3 (01:35→18:33)
[2023-01-18] MEDS: CARBIDOPA/LEVODOPA 25/250 TABLET (FP) PO SCH ×3 (05:38→22:59)
[2023-01-18] MEDS: AMANTADINE HCL 100 MG TABLET PO SCH ×3 (05:38→22:59)
[2023-01-18] MEDS: INSULIN SLIDING SCALE (NOVOLOG) 1 VIAL SQ SCH ×3 (07:02→18:33)
[2023-01-18] MEDS: AMINO ACIDS/PROTEIN HYDROLYS 30 ML LIQUID.PKT PO SCH ×2 (08:57→18:33)
[2023-01-18] MEDS: MULTIVITAMINS (DAILY MVI) TABLET (FP) PO SCH (09:57)
[2023-01-18] MEDS: HEPARIN NA (PORCINE) 5,000 UNITS/ML 1ML VIAL SQ SCH ×3 (09:57→22:59)
[2023-01-18] MEDS: LOSARTAN POTASSIUM 50 MG TABLET PO SCH (09:57)
[2023-01-18] MEDS: ASCORBIC ACID 500 MG TABLET (FP) PO SCH (09:58)
[2023-01-18 11:23] LABS: BASO % 0.5 % (0-2.0); EOS % 0.6 % (0-4.5); HEMATOCRIT 29.1 % (32.4-45.2); HEMOGLOBIN 9.7 GM/dL (10.7-15.3); LYMPH % 18.1 % (8-40); MCH 29.6 pg (25.7-33.7); MCHC 33.4 g/dl (32.0-36.0); MEAN CELL VOLUME 88.6 fl (80-96); MEAN PLT VOLUME 7.8 fl (7.5-11.1); MONO % 7.8 % (3.8-10.2); PLATELET COUNT 313 10^3/uL (134-434); RBC 3.29 M/mm3 (3.60-5.2); RDW 13.6 % (11.6-15.6); WHITE BLOOD COUNT 5.8 K/mm3 (4.0-10.0)
[2023-01-18 12:07] LABS: POTASSIUM 3.3 mmol/L (3.5-5.1)
[2023-01-18 12:12] LABS: BLOOD UREA NITROGEN 27.8 mg/dL (7-18); CALCIUM 9.7 mg/dL (8.5-10.1)
[2023-01-18 12:15] LABS: CREATININE 1.1 mg/dL (0.55-1.3)
[2023-01-18 12:16] LABS: TOT PROT 6.9 g/dl (6.4-8.2)
[2023-01-18 12:20] LABS: BILIRUBIN,TOTAL 0.4 mg/dL (0.2-1)
[2023-01-18] MEDS: POTASSIUM CHLORIDE TABS 20 MEQ TABLET.ER (FP) PO SCH (15:15)
[2023-01-18] MEDS: BACITRACIN ZINC 15 GM TUBE TOPICAL OINTMENT TP SCH (15:15)
[2023-01-18] MEDS: ATORVASTATIN CA 20 MG TABLET (FP) PO SCH (22:59)
[2023-01-19] MEDS: AMPICILLIN NA/SULBACTAM NA 1.5 GM in SODIUM CHLORIDE 100 ML IVPB SCH ×3 (02:15→17:51)
[2023-01-19] MEDS: CARBIDOPA/LEVODOPA 25/250 TABLET (FP) PO SCH ×3 (06:34→21:51)
[2023-01-19] MEDS: AMANTADINE HCL 100 MG TABLET PO SCH ×3 (06:34→21:51)
[2023-01-19] MEDS: INSULIN SLIDING SCALE (NOVOLOG) 1 VIAL SQ SCH ×3 (06:35→17:51)
[2023-01-19] MEDS: ASCORBIC ACID 500 MG TABLET (FP) PO SCH (09:54)
[2023-01-19] MEDS: POTASSIUM CHLORIDE TABS 20 MEQ TABLET.ER (FP) PO SCH (09:55)
[2023-01-19] MEDS: AMINO ACIDS/PROTEIN HYDROLYS 30 ML LIQUID.PKT PO SCH ×2 (09:55→17:51)
[2023-01-19] MEDS: MULTIVITAMINS (DAILY MVI) TABLET (FP) PO SCH (09:55)
[2023-01-19] MEDS: BACITRACIN ZINC 15 GM TUBE TOPICAL OINTMENT TP SCH (09:55)
[2023-01-19] MEDS: LOSARTAN POTASSIUM 50 MG TABLET PO SCH (09:55)
[2023-01-19] MEDS: HEPARIN NA (PORCINE) 5,000 UNITS/ML 1ML VIAL SQ SCH ×2 (09:56→21:50)
[2023-01-19 11:48] LABS: BASO % 1.1 % (0-2.0); EOS % 0.6 % (0-4.5); HEMATOCRIT 28.9 % (32.4-45.2); HEMOGLOBIN 9.8 GM/dL (10.7-15.3); MCH 30.3 pg (25.7-33.7); MEAN CELL VOLUME 89.3 fl (80-96); MONO % 7.8 % (3.8-10.2); NEUT % 74.5 % (42.8-82.8); PLATELET COUNT 319 10^3/uL (134-434); RBC 3.24 M/mm3 (3.60-5.2); WHITE BLOOD COUNT 6.4 K/mm3 (4.0-10.0)
[2023-01-19 12:54] LABS: POTASSIUM 3.9 mmol/L (3.5-5.1)
[2023-01-19 12:55] LABS: CALCIUM 9.2 mg/dL (8.5-10.1)
[2023-01-19 12:56] LABS: ALBUMIN 3.1 g/dl (3.4-5.0); BLOOD UREA NITROGEN 27.4 mg/dL (7-18); MAGNESIUM 2.1 mg/dL (1.8-2.4)
[2023-01-19 13:01] LABS: BILIRUBIN,TOTAL 0.3 mg/dL (0.2-1); TOT PROT 6.9 g/dl (6.4-8.2)
[2023-01-19] MEDS: ATORVASTATIN CA 20 MG TABLET (FP) PO SCH (21:51)
[2023-01-20] MEDS: AMPICILLIN NA/SULBACTAM NA 1.5 GM in SODIUM CHLORIDE 100 ML IVPB SCH ×2 (01:41→10:34)
[2023-01-20] MEDS: CARBIDOPA/LEVODOPA 25/250 TABLET (FP) PO SCH ×3 (05:42→21:47)
[2023-01-20] MEDS: AMANTADINE HCL 100 MG TABLET PO SCH ×3 (05:42→22:21)
[2023-01-20] MEDS: INSULIN SLIDING SCALE (NOVOLOG) 1 VIAL SQ SCH ×3 (06:38→17:24)
[2023-01-20] MEDS: HEPARIN NA (PORCINE) 5,000 UNITS/ML 1ML VIAL SQ SCH ×2 (10:30→21:48)
[2023-01-20] MEDS: AMINO ACIDS/PROTEIN HYDROLYS 30 ML LIQUID.PKT PO SCH ×2 (10:33→17:25)
[2023-01-20] MEDS: ASCORBIC ACID 500 MG TABLET (FP) PO SCH (10:34)
[2023-01-20] MEDS: LOSARTAN POTASSIUM 50 MG TABLET PO SCH (10:34)
[2023-01-20] MEDS: MULTIVITAMINS (DAILY MVI) TABLET (FP) PO SCH (10:35)
[2023-01-20] MEDS: POTASSIUM CHLORIDE TABS 20 MEQ TABLET.ER (FP) PO SCH (10:35)
[2023-01-20] MEDS: BACITRACIN ZINC 15 GM TUBE TOPICAL OINTMENT TP SCH (13:13)
[2023-01-20] MEDS: ATORVASTATIN CA 20 MG TABLET (FP) PO SCH (21:46)
[2023-01-21] MEDS: AMANTADINE HCL 100 MG TABLET PO SCH ×3 (05:41→21:44)
[2023-01-21] MEDS: CARBIDOPA/LEVODOPA 25/250 TABLET (FP) PO SCH ×3 (05:41→21:44)
[2023-01-21] MEDS: INSULIN SLIDING SCALE (NOVOLOG) 1 VIAL SQ SCH ×3 (08:45→17:32)
[2023-01-21] MEDS: LOSARTAN POTASSIUM 50 MG TABLET PO SCH (09:07)
[2023-01-21] MEDS: POTASSIUM CHLORIDE TABS 20 MEQ TABLET.ER (FP) PO SCH (09:07)
[2023-01-21] MEDS: LACTOBACILLUS ACIDOPHILUS 1 TABLET PO SCH (09:07)
[2023-01-21] MEDS: ASCORBIC ACID 500 MG TABLET (FP) PO SCH (09:07)
[2023-01-21] MEDS: MULTIVITAMINS (DAILY MVI) TABLET (FP) PO SCH (09:07)
[2023-01-21] MEDS: AMINO ACIDS/PROTEIN HYDROLYS 30 ML LIQUID.PKT PO SCH ×2 (09:08→17:32)
[2023-01-21] MEDS: AMOX TR/POT CLAV 500MG/125MG TABLETS (FP) PO SCH ×2 (09:08→17:32)
[2023-01-21] MEDS: BACITRACIN ZINC 15 GM TUBE TOPICAL OINTMENT TP SCH (09:08)
[2023-01-21] MEDS: HEPARIN NA (PORCINE) 5,000 UNITS/ML 1ML VIAL SQ SCH (09:09)
[2023-01-21] MEDS: ATORVASTATIN CA 20 MG TABLET (FP) PO SCH (21:44)
[2023-01-21] MEDS ORDERED: hydrALAZINE HCL 25 MG TABLET (FP) PO ONE (21:51)
[2023-01-22] MEDS: ACETAMINOPHEN 325 MG TABLET (FP) PO PRN (04:29)
[2023-01-22] MEDS: CARBIDOPA/LEVODOPA 25/250 TABLET (FP) PO SCH ×3 (06:57→21:44)
[2023-01-22] MEDS: INSULIN SLIDING SCALE (NOVOLOG) 1 VIAL SQ SCH ×3 (06:58→16:51)
[2023-01-22] MEDS: AMANTADINE HCL 100 MG TABLET PO SCH ×3 (06:58→21:44)
[2023-01-22] MEDS: LOSARTAN POTASSIUM 50 MG TABLET PO SCH (09:26)
[2023-01-22] MEDS: MULTIVITAMINS (DAILY MVI) TABLET (FP) PO SCH (09:26)
[2023-01-22] MEDS: POTASSIUM CHLORIDE TABS 20 MEQ TABLET.ER (FP) PO SCH (09:26)
[2023-01-22] MEDS: AMOX TR/POT CLAV 500MG/125MG TABLETS (FP) PO SCH ×2 (09:26→16:51)
[2023-01-22] MEDS: ASCORBIC ACID 500 MG TABLET (FP) PO SCH (09:26)
[2023-01-22] MEDS: LACTOBACILLUS ACIDOPHILUS 1 TABLET PO SCH (09:26)
[2023-01-22] MEDS: BACITRACIN ZINC 15 GM TUBE TOPICAL OINTMENT TP SCH (09:27)
[2023-01-22] MEDS: AMINO ACIDS/PROTEIN HYDROLYS 30 ML LIQUID.PKT PO SCH ×2 (09:27→16:51)
[2023-01-22] MEDS: ATORVASTATIN CA 20 MG TABLET (FP) PO SCH (21:43)
[2023-01-23] MEDS: INSULIN SLIDING SCALE (NOVOLOG) 1 VIAL SQ SCH ×3 (06:36→17:45)
[2023-01-23] MEDS: AMANTADINE HCL 100 MG TABLET PO SCH ×3 (06:36→22:04)
[2023-01-23] MEDS: CARBIDOPA/LEVODOPA 25/250 TABLET (FP) PO SCH ×3 (06:36→22:04)
[2023-01-23] MEDS: MULTIVITAMINS (DAILY MVI) TABLET (FP) PO SCH (09:45)
[2023-01-23] MEDS: LOSARTAN POTASSIUM 50 MG TABLET PO SCH (09:45)
[2023-01-23] MEDS: ASCORBIC ACID 500 MG TABLET (FP) PO SCH (09:45)
[2023-01-23] MEDS: AMINO ACIDS/PROTEIN HYDROLYS 30 ML LIQUID.PKT PO SCH ×2 (09:46→18:09)
[2023-01-23] MEDS: LACTOBACILLUS ACIDOPHILUS 1 TABLET PO SCH (09:46)
[2023-01-23] MEDS: AMOX TR/POT CLAV 500MG/125MG TABLETS (FP) PO SCH ×2 (09:46→18:09)
[2023-01-23] MEDS: POTASSIUM CHLORIDE TABS 20 MEQ TABLET.ER (FP) PO SCH (09:46)
[2023-01-23 10:01] LABS: BASO % 0.5 % (0-2.0); EOS % 0.9 % (0-4.5); HEMATOCRIT 29.6 % (32.4-45.2); HEMOGLOBIN 9.8 GM/dL (10.7-15.3); LYMPH % 16.3 % (8-40); MCH 29.4 pg (25.7-33.7); MEAN CELL VOLUME 89.1 fl (80-96); MEAN PLT VOLUME 8.1 fl (7.5-11.1); NEUT % 73.3 % (42.8-82.8); PLATELET COUNT 287 10^3/uL (134-434); RBC 3.32 M/mm3 (3.60-5.2); RDW 14.1 % (11.6-15.6); WHITE BLOOD COUNT 5.5 K/mm3 (4.0-10.0)
[2023-01-23] MEDS: BACITRACIN ZINC 15 GM TUBE TOPICAL OINTMENT TP SCH (10:08)
[2023-01-23 10:17] LABS: POTASSIUM 3.9 mmol/L (3.5-5.1)
[2023-01-23 10:22] LABS: ALBUMIN 3.1 g/dl (3.4-5.0)
[2023-01-23 10:24] LABS: CALCIUM 9.4 mg/dL (8.5-10.1)
[2023-01-23 10:25] LABS: MAGNESIUM 2.4 mg/dL (1.8-2.4)
[2023-01-23 10:27] LABS: BILIRUBIN,TOTAL 0.4 mg/dL (0.2-1)
[2023-01-23 10:28] LABS: CREATININE 1.1 mg/dL (0.55-1.3); TOT PROT 6.7 g/dl (6.4-8.2)
[2023-01-23] MEDS: ATORVASTATIN CA 20 MG TABLET (FP) PO SCH (22:04)
[2023-01-24] MEDS: AMANTADINE HCL 100 MG TABLET PO SCH ×3 (07:04→22:33)
[2023-01-24] MEDS: CARBIDOPA/LEVODOPA 25/250 TABLET (FP) PO SCH ×3 (07:04→22:32)
[2023-01-24] MEDS: INSULIN SLIDING SCALE (NOVOLOG) 1 VIAL SQ SCH ×3 (07:07→16:33)
[2023-01-24] MEDS: LOSARTAN POTASSIUM 50 MG TABLET PO SCH (09:35)
[2023-01-24] MEDS: POTASSIUM CHLORIDE TABS 20 MEQ TABLET.ER (FP) PO SCH (09:35)
[2023-01-24] MEDS: AMOX TR/POT CLAV 500MG/125MG TABLETS (FP) PO SCH ×2 (09:35→16:48)
[2023-01-24] MEDS: ASCORBIC ACID 500 MG TABLET (FP) PO SCH (09:35)
[2023-01-24] MEDS: MULTIVITAMINS (DAILY MVI) TABLET (FP) PO SCH (09:35)
[2023-01-24] MEDS: LACTOBACILLUS ACIDOPHILUS 1 TABLET PO SCH (09:35)
[2023-01-24] MEDS: AMINO ACIDS/PROTEIN HYDROLYS 30 ML LIQUID.PKT PO SCH ×2 (09:35→16:48)
[2023-01-24] MEDS: BACITRACIN ZINC 15 GM TUBE TOPICAL OINTMENT TP SCH (09:36)
[2023-01-24 09:44] LABS: BASO % 0.7 % (0-2.0); EOS % 0.9 % (0-4.5); HEMATOCRIT 29.1 % (32.4-45.2); HEMOGLOBIN 9.8 GM/dL (10.7-15.3); LYMPH % 16.1 % (8-40); MCH 29.7 pg (25.7-33.7); MCHC 33.8 g/dl (32.0-36.0); MEAN CELL VOLUME 88.1 fl (80-96); MEAN PLT VOLUME 7.8 fl (7.5-11.1); MONO % 9.8 % (3.8-10.2); NEUT % 72.5 % (42.8-82.8); PLATELET COUNT 257 10^3/uL (134-434); RDW 14.4 % (11.6-15.6); WHITE BLOOD COUNT 5.6 K/mm3 (4.0-10.0)
[2023-01-24 10:53] LABS: POTASSIUM 3.9 mmol/L (3.5-5.1)
[2023-01-24 11:06] LABS: ALBUMIN 3.2 g/dl (3.4-5.0); CALCIUM 9.3 mg/dL (8.5-10.1)
[2023-01-24 11:07] LABS: BLOOD UREA NITROGEN 27.1 mg/dL (7-18); MAGNESIUM 2.5 mg/dL (1.8-2.4)
[2023-01-24 11:10] LABS: CREATININE 0.9 mg/dL (0.55-1.3)
[2023-01-24 11:12] LABS: BILIRUBIN,TOTAL 0.3 mg/dL (0.2-1); TOT PROT 6.6 g/dl (6.4-8.2)
[2023-01-24] MEDS: ATORVASTATIN CA 20 MG TABLET (FP) PO SCH (22:32)
[2023-01-25] MEDS: CARBIDOPA/LEVODOPA 25/250 TABLET (FP) PO SCH ×2 (06:30→13:30)
[2023-01-25] MEDS: INSULIN SLIDING SCALE (NOVOLOG) 1 VIAL SQ SCH ×3 (06:31→16:55)
[2023-01-25] MEDS: AMANTADINE HCL 100 MG TABLET PO SCH ×2 (06:31→13:30)
[2023-01-25] MEDS: AMOX TR/POT CLAV 500MG/125MG TABLETS (FP) PO SCH ×2 (08:52→16:51)
[2023-01-25] MEDS: AMINO ACIDS/PROTEIN HYDROLYS 30 ML LIQUID.PKT PO SCH ×2 (09:52→16:51)
[2023-01-25] MEDS: ASCORBIC ACID 500 MG TABLET (FP) PO SCH (09:52)
[2023-01-25] MEDS: POTASSIUM CHLORIDE TABS 20 MEQ TABLET.ER (FP) PO SCH (09:52)
[2023-01-25] MEDS: LACTOBACILLUS ACIDOPHILUS 1 TABLET PO SCH (09:52)
[2023-01-25] MEDS: MULTIVITAMINS (DAILY MVI) TABLET (FP) PO SCH (09:52)
[2023-01-25] MEDS: LOSARTAN POTASSIUM 50 MG TABLET PO SCH (09:54)
[2023-01-25] MEDS: BACITRACIN ZINC 15 GM TUBE TOPICAL OINTMENT TP SCH (10:18)
[2023-01-25 10:31] LABS: BASO % 0.9 % (0-2.0); EOS % 0.9 % (0-4.5); HEMATOCRIT 31.3 % (32.4-45.2); HEMOGLOBIN 10.3 GM/dL (10.7-15.3); LYMPH % 15.6 % (8-40); MCH 29.7 pg (25.7-33.7); MEAN CELL VOLUME 90.2 fl (80-96); MEAN PLT VOLUME 8.2 fl (7.5-11.1); MONO % 7.9 % (3.8-10.2); NEUT % 74.7 % (42.8-82.8); PLATELET COUNT 290 10^3/uL (134-434); RBC 3.47 M/mm3 (3.60-5.2); RDW 14.6 % (11.6-15.6); WHITE BLOOD COUNT 6.1 K/mm3 (4.0-10.0)
[2023-01-25 10:46] LABS: POTASSIUM 4.3 mmol/L (3.5-5.1)
[2023-01-25 10:50] LABS: ALBUMIN 3.2 g/dl (3.4-5.0); BLOOD UREA NITROGEN 23.8 mg/dL (7-18); CALCIUM 9.2 mg/dL (8.5-10.1); MAGNESIUM 2.5 mg/dL (1.8-2.4)
[2023-01-25 10:56] LABS: BILIRUBIN,TOTAL 0.2 mg/dL (0.2-1); TOT PROT 6.9 g/dl (6.4-8.2)
[2023-01-25 15:24] VITALS: BP 154/95; PULSE 103; RESP 18; TEMP 98.5
== END 2023-01-25 18:15 | DRG 603 ==
LOC: JER 11:41 → JERBED 14:21 → J8W 16:32
PROVIDERS: ADMIT Internal Medicine; ATTEND Internal Medicine
DX: L03.115 Cellulitis of right lower limb (principal); L97.518 Non-pressure chronic ulcer of other part of right foot with other specified severity; L97.528 Non-pressure chronic ulcer of other part of left foot with other specified severity; L03.116 Cellulitis of left lower limb; R26.2 Difficulty in walking, not elsewhere classified; E78.5 Hyperlipidemia, unspecified; I83.015 Varicose veins of right lower extremity with ulcer other part of foot; I83.025 Varicose veins of left lower extremity with ulcer other part of foot; C55 Malignant neoplasm of uterus, part unspecified; G20 Parkinson's disease; E87.6 Hypokalemia; S81.802A Unspecified open wound, left lower leg, initial encounter; S81.801A Unspecified open wound, right lower leg, initial encounter; B96.1 Klebsiella pneumoniae [K. pneumoniae] as the cause of diseases classified elsewhere; B96.5 Pseudomonas (aeruginosa) (mallei) (pseudomallei) as the cause of diseases classified elsewhere; B95.61 Methicillin susceptible Staphylococcus aureus infection as the cause of diseases classified elsewhere; E11.51 Type 2 diabetes mellitus with diabetic peripheral angiopathy without gangrene
CPT/HCPCS: 0241U-QW; 36415; 80048; 80053; 82550; 82553; 82803; 82962; 83605; 83735; 84484; 85025; 85027; 85610; 85730; 86140; 86850; 86900; 86901; 87040; 87070; 87186; 87205; 87635; 93005; 93010; 93970-TC; 97116-GP; 97161-GP; 99285-25; J1644